=== PATIENT | male | born 1985 | race American Indian/Alaskan Native ===

== ENCOUNTER 2017-04-11 14:27 | Emergency (ER) | payer SELFPAY ==
[2017-04-11 14:46] VITALS: BP 136/82
[2017-04-11] MEDS ORDERED: PROVENTIL IH ONE (14:49)
--- NOTE | 2017-04-11 15:15 | XRay Report ---
CHEST 2 VIEWS INDICATION: Shortness of breath. COMPARISON: None similar at this institution. FINDINGS: PA and lateral chest radiographs demonstrate normal cardiomediastinal silhouette. Well-expanded lungs with a possible 5 mm left lung base granuloma. Thoracic spine straightening. CONCLUSION: No acute disease in the chest, as described. Direct comparison with prior chest imaging would also be helpful, if available. Thank you for the opportunity to participate in this patient's care.
[2017-04-11] MEDS ORDERED: DELTASONE PO ONE (15:32)
[2017-04-11] MEDS ORDERED: ATROVENT IH ONE (15:33)
--- NOTE | 2017-04-11 15:34 | Emergency Department Report ---
Chief Complaint: Dyspnea/Respdistress Stated Complaint: chest pain - HPI History of Present Illness: 32M PMH smoker, asthma p/w c/o sudden onset SOB and wheezing since this AM - Exam Vital Signs: Vital Signs 04/11/17 14:37 Temperature 98.4 F Pulse Rate 103 H Respiratory 20 Rate Blood Pressure 136/82 O2 Sat by Pulse 96 Oximetry Physical Exam: heart s1/s2, + wheezing b/l MSE screening note: Focused history and physical exam performed. Due to findings the following was ordered: MSE: shortness of breath 1- cxr 2- nebs and prednisone ED Medical Decision Making - Lab Data Result diagrams: 04/11/17 15:11 04/11/17 15:11 ED Disposition for MSE Condition: Stable
[2017-04-11 15:42] LABS: Basophils % (Auto) 0.3 % (0.0-1.8); Eosinophils % (Auto) 1.8 % (0.0-4.3); Hematocrit 47.6 % (35.5-45.6); Hemoglobin 15.8 gm/dl (11.8-15.2); Mean Corpuscular HGB Conc 33 % (32-34); Mean Corpuscular Hemoglobin 30 pg (28-32); Mean Corpuscular Volume 90 fl (84-94); Platelet Count 188 K/mm3 (140-440); Red Cell Distribution Width 13.1 % (13.2-15.2); White Blood Count 6.8 K/mm3 (4.5-11.0)
[2017-04-11 15:44] LABS: Anion Gap 18 mmol/L; Blood Urea Nitrogen 10 mg/dL (9-20); Calcium 9.4 mg/dL (8.4-10.2); Carbon Dioxide 27 mmol/L (22-30); Chloride 100.1 mmol/L (98-107); Glucose 94 mg/dL (75-100); Potassium 4.4 mmol/L (3.6-5.0); Sodium 141 mmol/L (137-145)
[2017-04-11] MEDS ORDERED: XOPENEX IH ONE ×2 (16:18)
== END 2017-04-11 18:34 | disposition left against medical advice (07) ==
LOC: ED 14:27
DX: R07.9 Chest pain, unspecified (principal); Z53.21 Procedure and treatment not carried out due to patient leaving prior to being seen by health care provider
CPT/HCPCS: 36415; 71020; 80048; 84484; 85025; 94640; J7512